=== PATIENT | male | born 1990 | race Caucasian/White ===

== ENCOUNTER 2018-08-02 01:31 | Emergency (ER) | payer OTHER ==
[~2018-08-02] VITALS: Ht 170.2 cm; Wt 86.0 kg
[~2018-08-02 01:31] MED LIST: IBUP-1542 PO
[2018-08-02 01:33] VITALS: Ht 170.2 cm; Wt 86.0 kg
[2018-08-02 03:50] VITALS: BP 125/69; PULSE 75; RESP 16
--- NOTE | 2018-08-30 02:11 | ERD ---
ER Documentation Chief Complaint Chief Complaint c/o non radiating chest pain x2 days. states lt arm was numb, but is gone HPI This 28-year-old male complaining of any chest pain for 2 days. Says left arm was numb and is now gone. He has been under a lot of stress lately. Pain is mild to moderate intensity no exacerbating alleviating factors. ROS All systems reviewed and are negative except as per history of present illness. Medications Home Meds Active Scripts Ibuprofen* (Motrin*) 600 Mg Tab, 600 MG PO Q6, #30 TAB Prov:MARCIALEWELINA Traylor PA-C 10/13/15 Allergies Allergies: Coded Allergies: No Known Allergy (Unverified , 08/02/18) PMhx/Soc History of Surgery: No Anesthesia Reaction: No Hx Neurological Disorder: No Hx Respiratory Disorders: No Hx Cardiac Disorders: No Hx Psychiatric Problems: No Hx Miscellaneous Medical Probl: No Hx Alcohol Use: Yes (socially) Hx Substance Use: No Hx Tobacco Use: No Smoking Status: Never smoker Physical Exam Physical Exam Const: No acute distress Head: Atraumatic Eyes: Normal Conjunctiva ENT: Normal External Ears, Nose and Mouth. Neck: Full range of motion. No meningismus. Resp: Clear to auscultation bilaterally Cardio: Regular rate and rhythm, no murmurs Abd: Soft, non tender, non distended. Normal bowel sounds Skin: No petechiae or rashes Back: No midline or flank tenderness Ext: No cyanosis, or edema Neur: Awake and alert Psych: Normal Mood and Affect Procedures/MDM EKG: Rate/Rhythm: [Normal Sinus Rhythm] QRS, ST, T-waves: [No changes consistent w/ acute ischemia] Impression: [No evidence of ischemia or arrhythmia] Chest X-ray 1V Interpreted by me: Soft Tissue: No acute abnormalities Bones: No acute abnormalities Mediastinum/Cardiac Silhouette/Lungs: [No acute abnormalities] Patient's thoracic symptoms have stabilized while in the department and are stable for outpatient follow up. Exam and work up not consistent w/ ischemia, arrhythmia, PE or dissection. Departure Diagnosis: Primary Impression: Chest pain Chest pain type: unspecified Qualified Codes: R07.9 - Chest pain, unspecified Condition: Stable Patient Instructions: Chest Pain, Uncertain Cause DANE WHEATLEY Aug 30, 2018 02:11
== END 2018-08-02 04:00 | disposition home or self-care (01) ==
LOC: E/R 01:31
DX: R07.9 Chest pain, unspecified (principal)
CPT/HCPCS: 71045; 93005